=== PATIENT | male | born 1945 | race Caucasian/White ===

== ENCOUNTER 2021-02-08 00:15 | Emergency (ER) | payer MEDICARE ==
[~2021-02-08] VITALS: Ht 177.8 cm; Wt 104.3 kg
[2021-02-08] MEDS ORDERED: HYDROCODON-ACE1 EA10 (02:36)
[2021-02-08] MEDS ORDERED: PREDNISONE10 MG (02:36)
[2021-02-08] MEDS ORDERED: LOVASTATIN40 MG PO (02:36)
[2021-02-08] MEDS ORDERED: CELECOXIB200 MG PO (02:36)
[2021-02-08] MEDS ORDERED: LOSARTAN POTAS100 MG PO (02:36)
[2021-02-09] MEDS ORDERED: FISH OIL 1,0001 EAC2 PO (14:58)
== END 2021-02-08 04:15 | disposition home or self-care (01) ==
LOC: ED 00:15
DX: U07.1 COVID-19 (principal); I10 Essential (primary) hypertension; E78.5 Hyperlipidemia, unspecified; Z87.891 Personal history of nicotine dependence
CPT/HCPCS: 71045; 80053; 83605; 85025; 94640; 99285-25; C9803; M0243; Q0244; U0003

== ENCOUNTER 2021-02-08 20:07 | Inpatient (IN) | payer MEDICARE ==
[~2021-02-08] VITALS: Ht 177.8 cm; Wt 104.3 kg
[~2021-02-08 20:07] MED LIST: CELECOXIB200 MG PO; HYDROCODON-ACE1 EA10; LOSARTAN POTAS100 MG PO; LOVASTATIN40 MG PO; PREDNISONE10 MG
--- OUTSIDE RECORDS SUMMARY | 2021-02-08 20:08 | XMS ---
PreManage Notification: ULISES SHERMAN Security Rn Quality Events No recent Security Events currently on file CRITERIA MET - [facility] - 2 Visits in 30 Days CARE PROVIDERS JOE MARCIAL Physician Business Trainer Current PHONE: [phone] [place] has no Care Guidelines for this patient. EBrendan VISIT COUNT (12 MO.) 2 [facility] TOTAL 2 NOTE: Visits indicate total known visits. ED/UCC VISIT TRACKING (12 MO.) 02/08/2021 20:07 [facility] [place] TYPE: Emergency COMPLAINT: - DIFFICULTY BREATHING 02/08/2021 00:15 [facility] [place] TYPE: Emergency COMPLAINT: - SOB INPATIENT VISIT TRACKING (12 MO.) No inpatient visits to display in this time frame [email or web address]
--- NOTE | 2021-02-08 23:25 | NUR ---
ADMISSION COMPLETED BY JUDE PEERYRA. PATIENT ASSESMENT COMPLETED. PATIENT IS ON 3L VIA NC. PATIENT PLACED ON TELE #2 TO MONITOR OXYGEN SATURATION. PATIENTS VITALS TAKEN AND RECORDED. PATIENTS MEDICATIONS GIVEN PER ORDER. PATIENT EDUCATED ON PLAN OF CARE. ALL QUESTIONS ANSWERED. PATIENT DENIES ANY PAIN OR SOB. NO FURTHER NEEDS NOTED. CALL LIGHT IN REACH.
--- NOTE | 2021-02-09 00:22 | NUR ---
PATIENT IS RESTING IN BED WITH EYES CLOSED, RR 19. PATIENT REMAINS ON 3L VIA NC. OXYGEN SATURATION IS 93%. CALL LIGHT IN REACH.
--- NOTE | 2021-02-09 02:03 | NUR ---
IV INFUSION COMPLETED. PATIENT SL PER ORDER. URINAL EMPTIED. PATIENT DENIES ANY NEEDS. PATIENT DENIES ANY SOB. PATIENT REMAINS ON 3L VIA NC. NO NEEDS NOTED. CALL LIGHT IN REACH.
--- NOTE | 2021-02-09 05:33 | NUR ---
PATIENTS VITALS TAKEN AND RECORDED. INTAKE AND OUPUT RECORDED. URINAL EMPTIED. PATIENT TITRATED DOWN TO 2L VIA NC. BLOOD DRAWN AND SENT TO LAB. PATIENT DENIES ANY PAIN OR SOB. IL FLUSHED AND SL. PATIENT DENIES ANY FURTHER NEEDS. CALL LIGHT IN REACH.
--- NOTE | 2021-02-09 07:32 | NUR ---
REPORT RECEIVED FROM EMEKA PEREYRA. PT RESTING IN BED ON LEFT SIDE, OXYGEN SATURATION 94% ON 2L O2 BY HUMIDIFIED NC. PT DENIES REQUESTS OR COMPLAINTS AT THIS TIME. CALL LIGHT WITHIN REACH. BED RAILS UP.
--- NOTE | 2021-02-09 09:10 | NUR ---
MORNING ASSESSMENT AND MEDICATION DUE. PT RESTING IN BED EATING BREAKFAST. PT ENCORAUGED TO GET UP TO CHAIR TO EAT. STAND BY ASSIST UP TO CHAIR. PT STEADY ON FEET AND MAINTAINS OXYGEN SATURATIONS ABOVE 90% ON 2L EVEN WITH AMBULATION. PT DENIES ZARI, DIARRHEA, AND NAUSEA. IV WNL, SALINE LOCKED AT THIS TIME. LUNG SOUNDS CLEAR, ALTHOUGH DEMINISHED IN BASES. I.S. PROVIDED AND EDUCATION DONE WITH PT. PT DEMONSTRATES USE OF I.S. REACHING [id number] X5. HARSH COUGH NOTED WITH I.S. USE. PT REPORTS CLEAR SPUTUM WITH COUGH. COUGH MEDICAITON GIVEN. PT REMAINS UP TO CHAIR AT THIS TIME. CALL LIGHT WITHIN REACH. NO ADDITIONAL REQUESTS OR COMPLAINTS. O2 90-95% ON 2L O2 BY NC.
--- NOTE | 2021-02-09 10:15 | NUR ---
THIS RN TO ROOM TO CHECK ON PT. PT READY FOR SHOWER. PT MAINTAINING OXYGEN SATURATIONS ABOVE 90% ON 2L O2 BY NC EVEN WITH ACTIVITY. PT UP TO SHOWER. INDEPENDANT IN SHOWER. LINENS CHANGED. PT DEMOSTRATES USE OF CALL LIGHT. CALL LIGHT WITHIN REACH.
--- NOTE | 2021-02-09 10:45 | NUR ---
PT FINISHED WITH SHOWER. REMAINS ON 2L O2 BY NC. OXYGEN SATURATIONS DROP TO 88% ON 2L. PT DENIES DIZZINESS BUT DOES REPORT HE FEELS "PRETTY TIRED." PT UP TO CHAIR. IV DRESSING WET AND LOOSE, CHANGED PER PROTOCOL. MD TO BEDSIDE FOR ROUNDS. PT VERBAZLIES UNDERSTANDING OF PLAN OF CARE. PT RECOVERS QUICKLY TO 90-93% ON 2L O2 BY NC. I.S USE DEMOSTRATED X5 PT REACHES 1900ML. PT DENIES ADDITIONAL REQUESTS OR COMPLAINTS. CALL LIGHT WIHTIN REACH. BED RAILS UP.
--- NOTE | 2021-02-09 11:35 | NUR ---
THIS RN TO ROOM TO CHECK ON PT. PT REMAINS UP TO CHAIR. O2 SATURATONS REMAIN ABOVE 90% ON 2L O2 BY NC. PT DEMONSTRATES USE OF I.S. REACHING 1750-1900ML X5. LUNCH ORDER PLACED. NO ADDITIONAL REQUESTS OR COMPLAINTS. CALL LIGHT WITHIN REACH.
--- NOTE | 2021-02-09 12:31 | NUR ---
LUNCH ARRIVED. PT UP TO CHAIR FOR LUNCH. O2 SATURATION REMAINS ABOVE 90% ON 2L O2 BY NC. PT REPORTS APPITITE IS IMPROVING SLIGHTLY. DENIES PAIN AND NAUSEA. NO ADDITIONAL REQUESTS OR COMPLANITS. CALL LIGHT WITHIN REACH.
--- NOTE | 2021-02-09 14:49 | NUR ---
Pt lives in [place] in a 1 story home with his . Does not use DME. Cont. to work at the [employer] in [place] and plans on retiring in the next 2 years. Lives with Debra who also has Covid. Ok financi ally. Plans on dc to home when ready for dc.
[2021-02-09] MEDS ORDERED: FISH OIL 1,0001 EAC2 PO (14:58)
--- NOTE | 2021-02-09 14:59 | NUR ---
MED REC COMPLETE
--- NOTE | 2021-02-09 15:13 | NUR ---
AFTERNOON ASSESSMENT AND MEDICATION DUE. THIS RN TO ROOM. PT UP TO CHAIR. PT REMAINS ON 2L O2 BY NC WITH OXYGEN SATURATIONS ABOVE 90%. PT DENIES PAIN AND NASUEA. PT REPORTS MODERATE APPITTIE. DENIES NASUEA AND DIARRHEA. PT UP TO AMBULATE AROUND ROOM. AMBULATES X3 LAPS IN ROOM WITH OXYGEN SATURATIONS 89-94% ON 2L O2 BY NC. LUNG SOUND CLEAR IN UPPER LOBES, DEMINISHED IN BASES WITH CRACKELS NOTED TO LEFT LOWER LOBE. I.S. USE DEMONSTRATED WITH PT RACHING 1500ML X5. PRODUCTIVE COUGH NOTED WITH YELLOW SPUTUM. COUGH MEDICATION GIVEN. PRONING EDUCATION DONE WITH PT. PT VERBAZLIES UNDERSTANDING AND AGREES TO TRY PRONE POSTION. PT ASISTED INTO PRONING POSTION, SUPPORTED WITH PILLOWS, OXYGEN SATURATIONS REMAINS ABOVE 90%, CURRENTLY 94%. PT DENIES ADDIITONAL REQUESTS OR COMPLAINTS. CALL LIGHT WITHIN REACH. BED RAILS UP.
--- NOTE | 2021-02-09 15:44 | NUR ---
THIS RN TO ROOM TO CHECK ON PT. PT CONTINUES PRONING. OXYGEN SATURATIONS OF 92% ON 2L O2 BY NC. PT RESTING WITH EYES CLOSED. RESPIRATIONS EVEN AND UNLABORED. PT ALLOWED TO REST. CALL LIGHT WITHIN REACH. BED RAILS UP.
--- NOTE | 2021-02-09 16:08 | NUR ---
PTS MARIANELA, CALLED FOR UPDATE. NO ANSWER AT THIS TIME. MESSAGE LEFT FOR CALL BACK.
--- NOTE | 2021-02-09 16:21 | NUR ---
MARIANELA, PTS , RETURNED CALL FOR UPDATE. MARIANELA UPDATED ON PT STATUS AND PLAN OF CARE. MARIANELA VERBALIZES UNDERSTANDING AND STATES HER QUESTIONS HAVE BEEN ANSWERED.
--- NOTE | 2021-02-09 16:32 | NUR ---
PT HERE FOR COVID RELATED PNEUMONIA. PT INDEPENDANT IN ROOM. STEADY ON FEET. STAND BY ASSIST UP TO SHOWER THIS SHIFT. PT UP TO CHAIR FOR MUCH OF THE DAY. I.S. EDUCATION DONE, USE ENSURED. PT PARTICIPATING IN PRONING PROTOCOLS. PT MAINTAINING OXYGEN SATURATIONS ABOVE 90% ON 2L O2 BY NC. FAMILY UPDATED. DEXAMETHSONE GIVEN. PT DENIES PAIN, NAUSEA, AND DIARRHEA THIS SHIFT. PT VOIDING QUANTITY SUFFIENCT, PO FLUIDS ENCORUAGED. PT USES CALL LIGHT AND MAKES NEEDS KNOWN.
--- NOTE | 2021-02-09 17:00 | NUR ---
PTS OXYGEN SATRUATIONS NOTED TO BE 84-86%. THIS RN TO ROOM. PT LYING ON LEFT SIDE. PT DEMONSTARTES USE OF I.S. REACHING 1500ML X5. COUGH NOTED. O2 INCREASED TO 6L O2 BY NC. WITH OXGYEN SATURATIONS CLIMBING TO 89-92%. PT SITTING IN SEMIFLOWERS POSITION. OXYGEN SATURATIONS MAINTAINING 89-92%. PT DENIES INCREASED WORK OF BREATHING OR SHORTNESS OF BREATH. WORK OF BREATHING REMAINS WNL. NO ADDITIONAL REQUESTS OR COMPLAINTS. CALL LIGHT WITHIN REACH. BED RAILS UP.
--- NOTE | 2021-02-09 17:59 | NUR ---
DINNER ARRIVED. DELIVERED TO PT. STAND BY ASSIST UP TO CHAIR FOR DINNER. O2 SATURATIONS 96% AND ABOVE ON 6L O2 BY NC. PT WEANED TO 4L O2 BY NC WITH OXGYEN SATURATIONS ABOVE 90%. VITAL SIGNS STABLE. PT DENIES ADDITIONAL REQUESTS OR COMPLAINTS. CALL LIGHT WITHIN REACH.
--- NOTE | 2021-02-09 18:53 | NUR ---
THIS RN TO ROOM TO CHECK ON PT. PT ENCORUAGED TO VOID, ANGELA AT THIS TIME STATING HE HAS NO NEED. O2 SATURATION 92-94% ON 4L O2 BY NC. PT REMAINS UP TO CHAIR. NO ADDITIONAL REQUESTS OR COMPLAINTS CALL LIGHT WITHIN REACH.
--- NOTE | 2021-02-09 19:27 | NUR ---
REPORT GIVEN TO HAFSA HENDRICKSON, WHO IS ASSUMING CARE OF PT.
--- NOTE | 2021-02-09 20:02 | NUR ---
RECEIVED REPORT FROM DAY SHIFT RN. PATIENT IS UP IN CHAIR WATCHING TV. PATIENT DENIES ANY NEEDS. CALL LIGHT IN REACH.
--- NOTE | 2021-02-09 20:55 | NUR ---
PATIENT ASSESMENT COMPLETED. URINAL EMPTIED. INTAKE AND OUTPUT RECORDED. PATIENTS VITALS TAKEN AND RECORDED. PATIENT TITRATED DOWN TO 3L VIA NC. PATIENT DENIES ANY SOB. PATIENTS SCHEDULED MEDICATION INFUSING PER ORDER. PATIENT DENIES ANY FURTHER NEEDS. CALL LIGHT IN REACH.
--- NOTE | 2021-02-09 22:00 | NUR ---
INFUSION COMPLETED. PATIENT IS NOW SL PER ORDER. PATIENT DENIES ANY NEEDS. CALL LIGHT IN REACH. PATIENT REMAINS ON 3L VIA NC AND OXYGEN SATURATION IS 91%.
--- NOTE | 2021-02-09 22:30 | NUR ---
IV ALARMING. ABX COMPLETE. SALINE FLUSH COMPLETE, PT SL. NO OTHER NEEDS AT THIS TIME.
--- NOTE | 2021-02-10 01:08 | NUR ---
PATIENT IS RESTING IN BED ON HIS LEFT SIDE WITH EYES CLOSED, RR 19. PATIENT ON TELE #2, 90% ON 3L VIA AK
--- NOTE | 2021-02-10 02:18 | NUR ---
PATIENTS URINAL EMPTIED. PATIENT IS RESTING IN BED WITH EYES CLOSED. PATIENTS BREATHING IS EVEN AND UNLABORED, RR 17. CALL LIGHT IN REACH. PATIENT IS ON TELE #2 AND OXYGEN SATURATION IS 93% ON 3L VIA NC. CALL LIGHT IN REACH.
--- NOTE | 2021-02-10 05:46 | NUR ---
PATIENTS BLOOD DRAWN AND SENT TO LAB. ASSESMENT COMPLETED. VITALS TAKEN AND RECORDED. PATIENTS URINAL EMPTIED. INTAKE AND OUPUT RECORDED. PATIENT REMAINS ON 3L VIA NC. PATIENT DENIES ANY SOB OR PAIN. PATIENTS ICE WATER REFILLED. PATIENT DENIES ANY FURTHER NEEDS. CALL LIGHT IN REACH.
--- NOTE | 2021-02-10 07:20 | NUR ---
REPORT RECEIVED FROM EMEKA PEREYRA. PT RESTING IN BED, O2 SATURATIONS AT 94% ON 3L O2 BY NC. PT DENIES REQUESTS OR COMPLAINTS. CALL LIGHT WITHIN REACH. BED RAILS UP.
--- NOTE | 2021-02-10 08:00 | NUR ---
BREAKFAST ARRIVED, DELIVERED TO PT. STAND BY ASSIST UP TO CHAIR FOR BREAKFAST. O2 SATRAUTONS DROP TO 86-88%. O2 INCREASED TO 4L O2 BY NC WITH OXYGEN CLIMBING TO 92%. PT EATING BREAKFAST. NO ADDITIONAL REQUESTS OR COMPLAINTS. CALL LIGHT WITHIN REACH.
--- NOTE | 2021-02-10 08:30 | NUR ---
Notified in report by Dr. Haines, pt october dc today. There are concerns as is also ill with covid and yesterday stated she was to ill for him to return home. She would not be able to assist. Will contact as she is well know to me.
--- NOTE | 2021-02-10 08:42 | NUR ---
MORNING ASSESSMENT AND MEDICATION DUE. PT UP TO CHAIR. FINISHED WITH BREAKFAST. PT DENIES PAIN AND NAUSEA "EXCEPT WHEN I COUGH." COUGH MEDICATION GIVEN. PT DENIES NAUSEA AND DIARRHEA. PT REPORTS HIS ENERGY LEVEL IS "OK." PT STATES "I CAN'T MURPHY INTO THINGS BUT I COULD GET UP AND DO STUFF." LUNG SOUNDS CLEAR IN UPPER LOBES. DEMINISHED IN LOWER LOBS WITH CRAKCELS HEARD IN RIGHT LOWER LOBE. I.S. USE DEMONSTRATED REACHING 1750 X5. PRODUCTIVE COUGH NOTED WITH I.S. USE WITH CLEAR TO YELLOW SPUTUM. O2 INCREASED TO 3L PT IS DROPPING TO 88% ON 2L O2 BY NC. O2 SATRUATIONS CONSITIANLY ABOVE 90% ON 3L O2 BY NC. PT REPORTS HE WOULD LIKE TO GO HOME TODAY. PT DENIES ADDIITONAL REQUESTS OR COMPLAINTS. CALL LIGHT WITHIN REACH.
--- NOTE | 2021-02-10 10:23 | NUR ---
THIS RN TO ROOM TO CHECK ON PT. PT REMAINS UP TO CHAIR. O2 SATURATIONS 90-94% ON 2L O2 BY NC. COUGH MEDICAITON GIVEN. PT DENIES ADDITIONAL REQUESTS OR COMPLAINTS. STATES HE WANTS TO WAIT TO SEE IF HE WILL GO HOME BEFORE SHOWERING. CALL LIGHT WITHIN REACH.
--- NOTE | 2021-02-10 10:40 | NUR ---
Called and spoke with pts , Debra. She states she is much better today, headache is gone and she was able to get up and shower. Children have been assisting by grocery shopping and running errands as needed. Debra states she feels good enough to drive and will pick Nasir up. Awaiting 02 qualifier. Spoke with Nasri and he would like [facility] for his 0xygen.
--- NOTE | 2021-02-10 10:40 | NUR ---
THIS RN TO ROOM TO CHECK ON PT. PT REMAINS UP TO CHAIR. OXGYEN SATURATIONS 90-92% ON 2L O2 BY NC. VITAL SIGNS STABLE. CASE MANAGEMENT TO BEDSIDE TO TALK WITH PT. LUNCH ORDER PLACED. PT DENIES ADDITIONAL REQUESTS OR COMPLAINTS CALL LIGHT WITHIN REACH.
--- NOTE | 2021-02-10 11:46 | NUR ---
O2 qualifier complete and given to Dr. Haines, requested Rx, order, and note entered to send to [facility].
--- NOTE | 2021-02-10 12:34 | NUR ---
LUNCH ARRIVED. PT UP TO CHAIR WATCHING TV. O2 AT 92-95% ON 3.5L O2 BY NC. PT WEANED TO 2L O2 BY NC WHILE EATING, MAINTAINING OXGYEN SATURATIONS ABOVE 90% ON 2L. PT DENIES ADDITIONAL REQUESTS OR COMPLAINTS. CALL LIGHT WITHIN REACH.
--- NOTE | 2021-02-10 13:42 | NUR ---
AFTERNOON ASSESSMENT DUE. PT UP TO CHAIR. OXGYEN SATURATION NOTED TO BE 86-88% ON 2L O2 BY NC. I.S. USED AND O2 SATURATION CLIMBES TO 89%. O2 INCRASED TO 4L O2 BY NC AND OXGYEN SATURATIONS CLIMBS TO 90-94%. PT DENIES PAIN AND NAUSEA. INSPIRATORY WHEEZE NOTED TO LEFT UPPER LOBE, SMALL AMOUNT OF FINE CRACKELS NOTED TO RIGHT LOWER LOBE. LUNG SOUNDS OTHERWISE CLEAR BUT DEMINSHED OVERALL. VITAL SIGNS STABLE. PT REACHING [id number] ON I.S. PT ENCORUAGED TO CONTINUE USING I.S. PRONING EDUCATION DONE. PT VERBALIZS UNDERSTANDING BUT STATES "I WON'T REALLY DO ANY OF THIS WHEN I GET HOME." EXTENSIVE EDUCATION DONE WITH PT REGARDING HOME OXGYEN USE, PRONING, I.S., QUARENTEENING, HEALNG FROM COVID, MEDICATIONS AND FOLLOW UP. PT VERBALIZES UNDERSTANDING. PT DENIES ADDITIONAL REQUESTS OR COMPLAINTS. CALL LIGHT WITHIN REACH.
--- NOTE | 2021-02-10 14:00 | NUR ---
Rx, face sheet, dc summary, H&P, 02 qualifier faxed to [facility]. Spoke with Eileen and they [facility] call [facility]. NOtified is also covid +.
--- NOTE | 2021-02-10 14:34 | NUR ---
Patient vitals, I&Os are complete. He has no requests and his call light is in reach and he is sitting in his chair.
[2021-02-10] MEDS ORDERED: DEXAMETHASONE6 MG PO (14:59)
--- NOTE | 2021-02-10 15:45 | NUR ---
Patient vitals, I&Os are done. Patient is getting ready to discharge.
--- NOTE | 2021-02-10 17:16 | NUR ---
PT READY FOR DISCHARGE. PT DRESSED AND BELONGINGS PACKED WITH STAND BY ASSIST FROM KAI QUIGLEY. PT UP TO CHAIR OXGYEN SATURATIOSN ABOVE 90% ON 3L O2 BY [place]. DISCHARGE INSTRUCTIONS REVIEWED WITH PT WITH SPECIAL ATTENTION GIVEN TO MEDICAITONS, FOLLOW UP, USING HOME OXYGEN, COVID 19 AND QUARENTEENING. PT VERBALIZES UNDERSTANDING OF ALL INSTRUCTIONS AND STATES HIS QUESTIONS HAVE BEEN ANSWERED. PT WHEELED FROM MED/SURG TO MEET SON IN LAW. ALL BELONGINGS RETURNED. NO ADDITOINAL REQUESTS OR CONCERNS.
--- NOTE | 2021-02-10 18:30 | NUR ---
MARIANELA CALLED. DISCHARGE INSTRUCTIONS REVEWIED WITH MARIANELA, WHO VERBALIZES UNDERSTANDINGAND STATES HER QUESTIONS HAVE BEEN ANSWERED.
== END 2021-02-10 17:10 | disposition home or self-care (01) | DRG 177 ==
LOC: ED 20:07 → MS 20:55
PROVIDERS: ADMIT Internal Medicine; ATTEND Internal Medicine
PROC: XW033E5 Introduction of Remdesivir Anti-infective into Peripheral Vein, Percutaneous Approach, New Technology Group 5 (ICD-10-PCS; principal; 2021-02-08)
PROC: 3E0333Z Introduction of Anti-inflammatory into Peripheral Vein, Percutaneous Approach (ICD-10-PCS; 2021-02-08)
DX: U07.1 COVID-19 (principal); J96.01 Acute respiratory failure with hypoxia; J12.82 Pneumonia due to coronavirus disease 2019; I10 Essential (primary) hypertension; E78.5 Hyperlipidemia, unspecified; D69.6 Thrombocytopenia, unspecified; Z79.899 Other long term (current) drug therapy; Z79.1 Long term (current) use of non-steroidal anti-inflammatories (NSAID)
CPT/HCPCS: 71045; 80053; 85007; 85025; 87040; 94667; 94760; 94761; 99285-25; A9270; J1100; J1650; J7050